=== PATIENT | female | born 1965 | race Two or more races ===

== ENCOUNTER 2020-09-04 11:43 | Emergency (ER) | payer OTHER ==
[~2020-09-04] VITALS: Ht 165.1 cm; Wt 94.3 kg
== END 2020-09-04 20:29 | disposition home or self-care (01) ==
LOC: ER 11:43 → EDBD 13:37 → ER 13:37
DX: K52.89 Other specified noninfective gastroenteritis and colitis (principal); Z03.818 Encounter for observation for suspected exposure to other biological agents ruled out

== ENCOUNTER 2021-05-07 08:20 | Outpatient (CLI) | payer OTHER | END 2021-05-07 08:23 | disposition home or self-care (01) | LOC: SONOGRAMA 08:20 | PROVIDERS: ATTEND Pathology Anatomic Pathology & Clinical Pathology | DX: E04.8 Other specified nontoxic goiter (principal) ==